=== PATIENT | female | born 1970 | race Caucasian/White ===

== ENCOUNTER → 2017-06-18 | Outpatient (CLI) | payer OTHER | LOC: FIMAGING 09:02 | DX: M77.8 Other enthesopathies, not elsewhere classified (principal) ==

== ENCOUNTER → 2019-01-03 | Outpatient (CLI) | payer OTHER | LOC: FIMAGING 17:10 | PROVIDERS: ATTEND Family Medicine | DX: R07.81 Pleurodynia (principal); M79.89 Other specified soft tissue disorders ==

== ENCOUNTER → 2019-01-24 | Outpatient (CLI) | payer OTHER | LOC: FIMAGING 09:41 ==